=== PATIENT | male | born 1975 | race Caucasian/White ===

== ENCOUNTER → 2016-04-27 | Outpatient (CLI) | payer OTHER ==
[~2016-04-27] MED LIST: ACET-654 PO; COLA100C PO; DITR5TAB PO; HYDR-3713 PO; PERC5TAB6 PO; PERCOCET PO; TOPR25TA PO; TYLE325T5 PO
[2016-04-27 17:34] LABS: CALCIUM LEVEL 9.1 MG/DL (8.5-10.1); CREATININE FOR GFR 1.47 MG/DL (0.70-1.30); GLOMERULAR FILTRATION RATE 56.2 (>60); POTASSIUM SERUM 4.6 MEQ/L (3.5-5.1)
== END ==
LOC: M SMT 10:22
PROVIDERS: ATTEND Urology
DX: C64.9 Malignant neoplasm of unspecified kidney, except renal pelvis (principal); Z90.5 Acquired absence of kidney

== ENCOUNTER → 2016-05-17 | Outpatient (CLI) | payer OTHER ==
[~2016-05-17] MED LIST changes: +ISOVUE-370 76% 100ML VIAL (Q9967) As Ordered ONE
--- NOTE | 2016-05-17 10:42 | REP ---
Clinical: History of renal cell carcinoma with prior right nephrectomy. Technique: Axial contrast enhanced images from the lung bases to the pubic symphysis using 100 ml Isovue 370 intravenous contrast material with precontrast and delayed images of the abdomen and pelvis as well as coronal and sagittal re-formations. Comparison: 02/22/2016. Findings: Liver, spleen, pancreas, gallbladder, and bilateral adrenal glands are normal. The patient is status post right nephrectomy in the right renal fossa is unremarkable. The left kidney demonstrates stable 2.2 cm cortical cyst and few nonobstructing renal calculi up to 9 mm without perinephric stranding or hydroureteronephrosis. The enteric system is without obstruction or acute inflammatory process. Normal terminal ileum and appendix are identified in the right lower quadrant. This scattered colonic and sigmoid diverticula noted without acute diverticulitis. Pelvis demonstrates normal bladder and age appropriate prostate/seminal vesicles. No ascites. No adenopathy. No mass lesion. Vasculature normal. Musculoskeletal structures are intact. Lung bases clear. Impression: 1. Left kidney demonstrates 2.2 cm stable simple cyst and few nonobstructing calculi up to 9 mm. Status post right nephrectomy. No evidence for recurrence or metastatic disease. 2. Colonic diverticula without acute diverticulitis. Signed by Reed Edwards MD 05/17/2016 10:33 A
== END ==
LOC: M RAD 09:48
PROVIDERS: ATTEND Urology
DX: Z85.528 Personal history of other malignant neoplasm of kidney (principal); Z08 Encounter for follow-up examination after completed treatment for malignant neoplasm
CPT/HCPCS: 74178; Q9967

== ENCOUNTER → 2016-08-27 | Outpatient (CLI) | payer OTHER ==
[~2016-08-27] MED LIST changes: -ACET-654 PO; +ACET1TAB17 PO; -COLA100C PO; +COLA100C5 PO; +FLOM5CAP PO; -ISOVUE-370 76% 100ML VIAL (Q9967) As Ordered ONE; +NAPR500T PO; +PERC5TAB12 PO; -PERC5TAB6 PO; +PYRI1TAB5 PO; +TAMSULOSIN
[2016-08-27 19:02] LABS: MEAN CORPUSCULAR HEMOGLOBIN 31.5 pg (27.0-33.0); MEAN CORPUSCULAR HGB CONC 35.2 g/dl (32.0-36.5); MEAN CORPUSCULAR VOLUME 89.5 fl (80.0-96.0); RED CELL DISTRIBUTION WIDTH 13.2 % (11.5-14.5); WHITE BLOOD COUNT 6.9 K/mm3 (4.0-10.0)
[2016-08-27 20:42] LABS: CALCIUM LEVEL 10.1 MG/DL (8.5-10.1); CREATININE FOR GFR 1.5 MG/DL (0.70-1.30); GLOMERULAR FILTRATION RATE 54.6 (>60); POTASSIUM SERUM 4.6 MEQ/L (3.5-5.1)
== END ==
LOC: M LAB 17:25
PROVIDERS: ATTEND Urology
DX: Z01.818 Encounter for other preprocedural examination (principal); N20.0 Calculus of kidney

== ENCOUNTER → 2016-08-30 | Day surgery (SDC) | payer OTHER ==
[~2016-08-30] VITALS: Ht 177.8 cm; Wt 104.3 kg
[~2016-08-30] MED LIST changes: +LIDOCAINE 2% INJ 100 MG/5 ML SDV (FOR ANES.) As Ordered ONE; +LR 500 ML IV ONE; +MIDAZOLAM INJ 2 MG/2 ML VIAL (J2250) As Ordered ONE; +PROPOFOL 200 MG/20 ML VIAL As Ordered ONE; +fentaNYL 100 MCG/2 ML INJECTION (J3010) As Ordered ONE
--- NOTE | 2016-08-30 10:17 | REP ---
KUB, ONE VIEW: HISTORY: Left kidney stones. COMPARISON: 09/16/2011. Calcifications are present overlying the left kidney. The largest measures 7 mm. A small amount of air is present in small and large intestine. There are no air fluid levels or dilated loops of intestine. IMPRESSION: 1. Left nephrolithiasis. 2. Nonspecific bowel gas pattern. Signed by Juan Ramon Coffman MD 08/30/2016 10:18 A
[2016-08-30 12:15] VITALS: BP 138/88
--- NOTE | 2016-08-30 18:00 | RO ---
DATE OF PROCEDURE: 08/30/2016 PREPROCEDURE DIAGNOSIS: Left kidney stones. POSTPROCEDURE DIAGNOSIS: Left kidney stones. PROCEDURE: PROCEDURE: Left extracorporeal shockwave lithotripsy. SURGEON: Dr. Sharath Samano SUPERVISOR ROAD ADMINISTRATOR: None ANESTHESIA: Monitored anesthesia care (MAC). OPERATIVE INDICATIONS: This is a 41-year-old male with a solitary left kidney due to having a right radical nephrectomy a year or two ago for renal cell carcinoma. On surveillance CAT scan he was noted to have approximately 3-4 left sided kidney stones in the lower pole measuring up to 4-5 mm in size. It was recommended he be brought to the operating room today for the above listed procedure. DESCRIPTION OF PROCEDURE: The patient was brought to the operating room and MAC anesthesia was administered. Prophylactic antibiotics were infused. He was then placed in the supine position in preparation for left-sided extracorporeal shockwave lithotripsy. Fluoroscopy was utilized to monitor stone position and fragmentation throughout the procedure. Shockwaves were then delivered to the left-sided kidney stones ungated. There were no arrhythmias. The stones did appear to fragment well. After 2500 shocks, the procedure was concluded. The patient was then awakened from anesthesia and transported to the recovery room in stable condition. ESIMTATED BLOOD LOSS: 0 mL. COMPLICATIONS: None. SPECIMENS: None. PLAN: The patient will followup in the clinic in a few weeks with imaging prior to assess for residual stone burden. CORBY
== END | disposition home or self-care (01) ==
LOC: M SDC 09:12
PROVIDERS: ATTEND Urology
DX: N20.0 Calculus of kidney (principal); I10 Essential (primary) hypertension; C64.1 Malignant neoplasm of right kidney, except renal pelvis

== ENCOUNTER → 2016-09-26 | Outpatient (CLI) | payer OTHER ==
[~2016-09-26] MED LIST changes: -LIDOCAINE 2% INJ 100 MG/5 ML SDV (FOR ANES.) As Ordered ONE; -LR 500 ML IV ONE; -MIDAZOLAM INJ 2 MG/2 ML VIAL (J2250) As Ordered ONE; -PROPOFOL 200 MG/20 ML VIAL As Ordered ONE; -fentaNYL 100 MCG/2 ML INJECTION (J3010) As Ordered ONE
--- NOTE | 2016-09-27 01:31 | REP ---
Clinical: Nephrolithiasis. Technique: Two supine views of the abdomen and pelvis. Comparison: 08/30/2016. Findings: Evaluation is limited by overlying bowel gas pattern. However, multiple left intrarenal calculi are again suggested and essentially unchanged. No evidence for bowel obstruction. Skeletal structures are intact. No organomegaly. Impression: Left intrarenal calculi essentially unchanged compared to prior examination. Signed by Reed Edwards MD 09/27/2016 01:22 A
== END ==
LOC: M SMT 11:23
PROVIDERS: ATTEND Urology
DX: N20.0 Calculus of kidney (principal)

== ENCOUNTER → 2016-12-05 | Outpatient (CLI) | payer OTHER ==
--- NOTE | 2016-12-06 15:20 | REP ---
Clinical: Nephrolithiasis. Technique: Single supine view of the abdomen and pelvis. Comparison: 09/26/2016. Findings: Small bilateral intrarenal calculi are identified along with 10 mm nonobstructing left renal calculus. Nonspecific bowel gas pattern. No organomegaly. No abnormal calcifications. Skeletal structures intact. Impression: Bilateral nephrolithiasis (left greater than right). Signed by Reed Edwards MD 12/06/2016 03:11 P
== END ==
LOC: M SMT 11:52
PROVIDERS: ATTEND Urology
DX: N20.0 Calculus of kidney (principal)

== ENCOUNTER 2016-12-10 18:19 | Emergency (ER) | payer OTHER ==
[~2016-12-10] VITALS: Ht 177.8 cm; Wt 108.1 kg
[~2016-12-10 18:19] MED LIST changes: -FLOM5CAP PO; -NAPR500T PO; -PYRI1TAB5 PO; -TAMSULOSIN
[2016-12-10] MEDS ORDERED: TAMSULOSIN (18:55)
[2016-12-10] MEDS ORDERED: NS 1,000 ML IV SCH (19:21)
[2016-12-10] MEDS ORDERED: KETOROLAC 30 MG/ML VIAL (J1885) IV ONE (19:30)
[2016-12-10] MEDS ORDERED: MORPHINE 2 MG/ML 1ML SYRINGE IV PRN (19:30)
[2016-12-10] MEDS ORDERED: ONDANSETRON 4MG/2ML VIAL (J2405) IV ONE (19:30)
--- NOTE | 2016-12-10 20:00 | REPUSA ---
CT of the abdomen and pelvis without contrast Clinical statement: Pain. Technique: Multiple axial CT images were obtained from the base of the lungs to the floor of the pelv is utilizing 5 mm axial slices without administration of contrast. Coronal and sagittal reconstructio ns were also obtained. Comparison: 02/22/2016. Findings: Chest: The visualized lung bases are clear. Abdomen: The right kidney is absent. The left kidney is unremarkable. There is no evidence of hydrone phrosis. Multiple stones are seen in the left kidney. The largest of these is in the left renal pelvi s measuring 9 mm. There is a simple left lateral renal cyst measuring 1.6 x 2.6 cm. The liver, spleen , pancreas, gallbladder and adrenal glands are unremarkable. The aorta demonstrates normal caliber an d contour. There is no abdominal lymphadenopathy or ascites. Pelvis: The bowel is unremarkable, with no obstructive or inflammatory changes. The appendix is paris l. The urinary bladder is within normal limits. There is no pelvic lymphadenopathy or ascites. The ot her pelvic structures appear unremarkable. Bones: There are no suspicious osseous abnormalities seen. Impression: 1. Multiple nonobstructing stones in the left renal collecting system. The largest of these is a 9 mm stone located in the left renal pelvis. There is no evidence of hydronephrosis. Simple left renal cy st is noted. 2. No obstructive or inflammatory bowel changes. 3. Grossly stable examination.
[2016-12-10 20:03] LABS: BASO # 0.1 10^3/uL (0.0-0.2); BASO % 0.5 % (0.0-1.0); EOS # 0.4 10^3/uL (0.0-0.50); EOS % 3.8 % (0.0-3.0); IMMATURE GRANULOCYTE % 0.3 % (0-0); LYMPH # 2.6 10^3/uL (1.5-4.5); LYMPH % 25.7 % (24.0-44.0); MEAN CORPUSCULAR HGB CONC 34.2 g/dl (32.0-36.5); MEAN CORPUSCULAR VOLUME 90.6 fl (80.0-96.0); MONO # 0.9 10^3/uL (0.0-0.8); MONO % 8.8 % (0.0-5.0); NEUTROPHILS # 6.2 10^3/uL (1.8-7.7); NEUTROPHILS % 60.9 % (36.0-66.0); PLATELET COUNT, AUTOMATED 238 10^3/uL (150-450); RED CELL DISTRIBUTION WIDTH 12.8 % (11.5-14.5); WHITE BLOOD COUNT 10.1 10^3/uL (4.0-10.0)
[2016-12-10 20:23] LABS: ALBUMIN/GLOBULIN RATIO 1.08 (1.00-1.93); BILIRUBIN,DIRECT 0.1 MG/DL (0.0-0.2); BILIRUBIN,TOTAL 0.4 MG/DL (0.2-1.0); CALCIUM LEVEL 9.6 MG/DL (8.5-10.1); CREATININE FOR GFR 1.56 MG/DL (0.70-1.30); GLOMERULAR FILTRATION RATE 52.2 (>60); POTASSIUM SERUM 4.1 MEQ/L (3.5-5.1); TOTAL PROTEIN 7.7 GM/DL (6.4-8.2)
[2016-12-10] MEDS ORDERED: PYRI1TAB5 PO (22:20)
[2016-12-10] MEDS ORDERED: NAPR500T PO (22:20)
[2016-12-10 22:28] VITALS: BP 146/84
[2016-12-10] MEDS ORDERED: PHENAZOPYRIDINE 100 MG TAB PO ONE (22:30)
[2016-12-14] MEDS ORDERED: PERC5TAB12 PO (13:13)
[2016-12-14] MEDS ORDERED: FLOM5CAP PO (13:13)
== END 2016-12-10 22:30 | disposition home or self-care (01) ==
LOC: M ED 18:19
DX: R10.9 Unspecified abdominal pain (principal); Z87.891 Personal history of nicotine dependence
CPT/HCPCS: 74176; 80048; 80076; 81001; 83690; 85025; 87086; 96374; 96375; 99283; J1885; J2405

== ENCOUNTER → 2016-12-19 | Outpatient (CLI) | payer OTHER ==
[~2016-12-19] MED LIST changes: +FLOM5CAP PO; +NAPR500T PO; +PYRI1TAB5 PO; +TAMSULOSIN
[2016-12-19 18:43] LABS: MEAN CORPUSCULAR HEMOGLOBIN 30.2 pg (27.0-33.0); MEAN CORPUSCULAR HGB CONC 32.3 g/dl (32.0-36.5); MEAN CORPUSCULAR VOLUME 93.5 fl (80.0-96.0); PLATELET COUNT, AUTOMATED 253 10^3/uL (150-450); RED CELL DISTRIBUTION WIDTH 12.7 % (11.5-14.5); WHITE BLOOD COUNT 6.6 10^3/uL (4.0-10.0)
[2016-12-19 19:06] LABS: CALCIUM LEVEL 9.1 MG/DL (8.5-10.1); CREATININE FOR GFR 1.58 MG/DL (0.70-1.30); GLOMERULAR FILTRATION RATE 51.5 (>60); POTASSIUM SERUM 4.1 MEQ/L (3.5-5.1)
== END ==
LOC: M SMT 12:16
PROVIDERS: ATTEND Urology
DX: Z01.818 Encounter for other preprocedural examination (principal); N20.0 Calculus of kidney

== ENCOUNTER 2016-12-20 08:37 | Day surgery (SDC) | payer OTHER ==
[~2016-12-20] VITALS: Ht 177.8 cm; Wt 104.8 kg
[~2016-12-20 08:37] MED LIST changes: +PROPOFOL 200 MG/20 ML VIAL As Ordered ONE
[2016-12-20] MEDS ORDERED: fentaNYL 100 MCG/2 ML INJECTION (J3010) As Ordered ONE (08:45)
[2016-12-20] MEDS ORDERED: MIDAZOLAM INJ 2 MG/2 ML VIAL (J2250) As Ordered ONE (08:46)
[2016-12-20] MEDS ORDERED: LR 1,000 ML IV ONE (09:00)
[2016-12-20] MEDS ORDERED: LIDOCAINE 1% MDV 20ML VIAL SC PRN (09:00)
--- NOTE | 2016-12-20 09:31 | REP ---
KUB ABDOMEN AND PELVIS: KUB film of abdomen and pelvis is performed and compared to prior a prior study of 12/05/2016. There is a nonobstructive bowel gas pattern. Once again overlying the mid left kidney is a rounded calcification approximately 1 cm in diameter unchanged since prior study. A couple of subcentimeter calcifications overlie the upper pole and a couple again overlie the lower pole of the left kidney. Evaluation for right renal calculi is limited by bowel gas and fecal material superimposed on the right kidney. Signed by Mak Colbert MD 12/20/2016 02:34 P
[2016-12-20] MEDS ORDERED: PERCOCET 5MG/325MG TAB As Ordered ONE (11:37)
[2016-12-20 12:00] VITALS: BP 116/69
[2016-12-20] MEDS ORDERED: PERCOCET 5MG/325MG TAB PO PRN ×2 (12:00)
--- NOTE | 2016-12-21 14:40 | RO ---
DATE OF PROCEDURE: 12/20/2016 PREPROCEDURE DIAGNOSIS: Left kidney stone. POSTPROCEDURE DIAGNOSIS: Left kidney stone. PROCEDURE: Left extracorporeal shock wave lithotripsy (ESWL). SURGEON: Sharath Samano MD SCHEDULING AGENT: None ANESTHESIA: Monitored anesthesia care (MAC). OPERATIVE INDICATIONS: This is a 41-year-old male with a solitary left kidney, who had a recurrent left sided kidney stone. He had left extracorporeal shock wave lithotripsy recently and on recent imaging, he has another 9 mm nonobstructing left kidney stone. Options for treatment included ureteroscopy with laser lithotripsy and extracorporeal shock wave lithotripsy. He preferred to undergo another extracorporeal shock wave lithotripsy. DESCRIPTION OF PROCEDURE: The patient was brought to the operating room where MAC anesthesia was administered. Prophylactic antibiotics were infused. He was then placed in the supine position in preparation for left-sided extracorporeal shock wave lithotripsy. Fluoroscopy was utilized to monitor stone position and fragmentation throughout the procedure. Shock waves were then delivered to the left-sided kidney stone, ungated. There were no arrhythmias. The stones did appear to fragment well. After 2500 shocks, the procedure was concluded. The patient was then awakened from anesthesia and transported to the recovery room in stable condition. ESTIMATED BLOOD LOSS: 0 mL. INTRAOPERATIVE COMPLICATIONS: None. SPECIMENS: None. PLAN: The patient will followup in the clinic in a few weeks with imaging prior to assess for residual stone burden. Of note, if he does not adequately pass the stone from this procedure, I will recommend a uteroscopy with laser lithotripsy. [facility] OGDEN MEDICAL CENTERFelicia
== END 2016-12-20 12:20 | disposition home or self-care (01) ==
LOC: M SDC 08:37
PROVIDERS: ATTEND Urology
DX: N20.0 Calculus of kidney (principal); N39.0 Urinary tract infection, site not specified; I10 Essential (primary) hypertension; C64.1 Malignant neoplasm of right kidney, except renal pelvis; Z72.0 Tobacco use

== ENCOUNTER 2019-09-27 16:45 | Inpatient (IN) | payer BC, SELFPAY ==
[~2019-09-27 16:45] MED LIST changes: -ACET1TAB17 PO; +ACET1TAB55 PO; +FLOM0.4C39 PO; -FLOM5CAP PO; +KETOROLAC 30 MG/ML 1ML VIAL As Ordered ONE; +NAPR-837 PO; -NAPR500T PO; +ONDANSETRON 4MG/2ML VIAL As Ordered ONE; -PROPOFOL 200 MG/20 ML VIAL As Ordered ONE
[2019-09-27] MEDS ORDERED: cefTRIAXone SOD 1GM VIAL (J0696 PER 250MG) As Ordered ONE (17:31)
[2019-09-27] MEDS ORDERED: CONRAY-60 60% 50ML VIAL (Q9961) As Ordered ONE (18:16)
[2019-09-27] MEDS ORDERED: fentaNYL 100 MCG/2 ML INJECTION (J3010) ONE (18:39)
[2019-09-27] MEDS ORDERED: propofoL 200 MG/20 ML VIAL ONE ×2 (18:39→18:45)
[2019-09-27] MEDS ORDERED: MIDAZOLAM INJ 2MG/2ML VIAL (J2250 PER 1MG) ONE (18:39)
[2019-09-27] MEDS ORDERED: LIDOCAINE 2% 5ML JELLY UROJET As Ordered ONE ×2 (18:40→18:43)
[2019-09-27] MEDS ORDERED: ALBUTEROL SULFATE 2.5 MG/0.5 ML INH NEB SOLN As Ordered ONE (19:31)
[2019-09-27] MEDS ORDERED: oxyBUTYnin 5 MG TAB As Ordered ONE (19:31)
[2019-09-27] MEDS ORDERED: oxyCODONE 5MG TAB As Ordered ONE (20:29)
[2019-09-27] MEDS ORDERED: ACETAMINOPHEN TAB 650MG DOSE (2X325MG) As Ordered ONE (23:20)
[2019-09-27] MEDS ORDERED: MORPHINE 2 MG/ML 1ML VIAL (J2270) As Ordered ONE (23:29)
[2019-09-28] MEDS ORDERED: MORPHINE 2 MG/ML 1ML VIAL (J2270) As Ordered ONE ×3 (02:06→08:17)
[2019-09-28] MEDS ORDERED: ACETAMINOPHEN TAB 650MG DOSE (2X325MG) As Ordered ONE (05:55)
[2019-09-28] MEDS ORDERED: ENOXAPARIN 40MG/0.4ML SYRINGE (J1650 PER 10MG) As Ordered ONE (08:17)
[2019-09-28] MEDS ORDERED: ONDANSETRON 4 MG TAB As Ordered ONE (08:17)
[2019-09-28] MEDS ORDERED: amLODIPine 5 MG TAB As Ordered ONE (13:22)
[2019-09-28] MEDS ORDERED: PERCOCET 5MG/325MG TAB As Ordered ONE (13:26)
[2019-11-12 13:36] LABS: INR 1.06; PROTHROMBIN TIME 14.1 SECONDS (11.8-14.0)
[2019-11-12 16:43] LABS: BASO % 0.2 % (0.0-1.0); EOS % 0.1 % (0.0-3.0); HEMATOCRIT 44.3 % (42.0-52.0); HEMOGLOBIN 14.6 g/dl (13.5-17.5); LYMPH # 1.4 10^3/uL (1.5-5.0); LYMPH % 8.1 % (24.0-44.0); MEAN CORPUSCULAR HEMOGLOBIN 28.6 pg (27.0-33.0); MEAN CORPUSCULAR VOLUME 86.9 fl (80.0-96.0); MONO # 1.2 10^3/uL (0.0-0.8); MONO % 7.1 % (0.0-5.0); NEUTROPHILS # 14.2 10^3/uL (1.5-8.5); NEUTROPHILS % 84.1 % (36.0-66.0); PLATELET COUNT, AUTOMATED 295 10^3/uL (150-450); WHITE BLOOD COUNT 16.8 10^3/uL (4.0-10.0)
[2019-11-17 06:56] LABS: APPEARANCE, URINE HAZY (CLEAR); BACTERIA, URINE AUTO 1+ (NEGATIVE); BILIRUBIN, URINE AUTO NEGATIVE (NEGATIVE); BLOOD, URINE BLOOD 3+ (NEGATIVE); CALCIUM OXALATE CRYSTALS SMALL; COLOR, URINE YELLOW (YELLOW); GLUCOSE, URINE (UA) AUTO NEGATIVE (NEGATIVE); KETONE, URINE AUTO NEGATIVE (NEGATIVE); LEUKOCYTE ESTERASE, URINE AUTO 2+ (NEGATIVE); MUCUS, URINE SMALL (NEGATIVE); NITRITE, URINE AUTO NEGATIVE (NEGATIVE); PROTEIN, URINE AUTO 2+ mg/dL (NEGATIVE); RBC, URINE AUTO TNTC /HPF (0-3); SPECIFIC GRAVITY URINE AUTO 1.005 (1.002-1.035); SQUAMOUS EPITHELIAL CELL UR AU 0 /HPF (0-6); UROBILINOGEN, URINE AUTO 0.2 mg/dL (0.0-2.0); WBC, URINE AUTO 28 /HPF (0-3)
[2019-11-17 14:14] LABS: CALCIUM LEVEL 8.6 MG/DL (8.5-10.1); CREATININE FOR GFR 3.38 MG/DL (0.70-1.30); GLOMERULAR FILTRATION RATE 21.1 (>60); POTASSIUM SERUM 4.1 MEQ/L (3.5-5.1)
[2019-11-17 16:49] LABS: BASO % 0.1 % (0.0-1.0); EOS % 0.2 % (0.0-3.0); HEMOGLOBIN 13.8 g/dl (13.5-17.5); LYMPH # 0.9 10^3/uL (1.5-5.0); LYMPH % 8.6 % (24.0-44.0); MEAN CORPUSCULAR HEMOGLOBIN 28.3 pg (27.0-33.0); MEAN CORPUSCULAR HGB CONC 32.9 g/dl (32.0-36.5); MEAN CORPUSCULAR VOLUME 86.1 fl (80.0-96.0); MONO # 0.6 10^3/uL (0.0-0.8); MONO % 5.4 % (0.0-5.0); NEUTROPHILS # 9.3 10^3/uL (1.5-8.5); NEUTROPHILS % 85.2 % (36.0-66.0); PLATELET COUNT, AUTOMATED 278 10^3/uL (150-450); RED BLOOD COUNT 4.88 10^6/uL (4.30-6.10); WHITE BLOOD COUNT 10.9 10^3/uL (4.0-10.0)
--- NOTE | 2019-11-26 08:50 | RO ---
DATE OF OPERATION: 09/27/2019 PREOPERATIVE DIAGNOSIS: Obstructing left kidney stone. POSTOPERATIVE DIAGNOSIS: Obstructing left kidney stone. PROCEDURE: Cystoscopy. Left ureteral stent placement. Left retrograde pyelogram with intraoperative interpretation of images. SURGEON: Sharath Samano MD. HUMAN RESOURCES PROFESSIONAL: None. ANESTHESIA: MAC. OPERATIVE INDICATIONS: This is a 44-year-old male with the history of a solitary left kidney. This is due to him having a right radical nephrectomy a few years ago. He presented to the emergency room with anuria x1 day and severe left flank pain. A CAT scan was obtained and it was notable for an obstructing 2-cm left ureteropelvic junction stone. He was brought to the operating room today for the above listed procedure. DESCRIPTION OF PROCEDURE: The patient was brought to the operating room and MAC anesthesia was administered. Prophylactic antibiotics were infused. He was placed in the dorsal lithotomy position and prepped, and draped in the usual sterile fashion. A rigid cystoscope was inserted into the urethral meatus and advanced to the bladder. A guidewire was advanced up the left collecting system. A 5-Martiniquais open-ended ureteral catheter was advanced over the wire into the left collecting system. The wire was removed and some urine was aspirated from the left kidney which was sent for culture. A retrograde pyelogram was performed notable for [id number] left hydronephrosis with no extravasation. The guidewire was advanced back up the left collecting system. The ureteral catheter was then removed and then the wire was utilized to advance a 7-Martiniquais x 22-32 cm JJ ureteral stent into the left collecting system. The wire was removed. There were adequate curls of the stent in the left renal pelvis and in the bladder. The cystoscope was then removed. Then, a 16-Martiniquais Crowell catheter was inserted into the bladder. The balloon was filled with 10 mL of sterile water and the catheter was connected to gravity drainage. This marked the conclusion of the procedure. The patient was taken out of the dorsal lithotomy position, awakened from anesthesia, and transported to the recovery room in stable condition. ESTIMATED BLOOD LOSS: 5 mL. COMPLICATIONS: None. SPECIMEN: Urine from the left kidney for culture. PLAN: The patient will be monitored in the hospital for the next few days for acute kidney injury. His catheter can likely be removed tomorrow. Once his kidney function improves, he will be discharged to home and will have to follow up for a cystoscopy, left ureteroscopy, and laser lithotripsy in the near future. CORBY
[2019-12-06 14:43] LABS: BASO % 0.2 % (0.0-1.0); EOS % 0.1 % (0.0-3.0); HEMATOCRIT 42.5 % (42.0-52.0); HEMOGLOBIN 14.1 g/dl (13.5-17.5); LYMPH # 1.4 10^3/uL (1.5-5.0); LYMPH % 11.6 % (24.0-44.0); MEAN CORPUSCULAR HEMOGLOBIN 29.1 pg (27.0-33.0); MEAN CORPUSCULAR HGB CONC 33.2 g/dl (32.0-36.5); MEAN CORPUSCULAR VOLUME 87.8 fl (80.0-96.0); MONO # 0.9 10^3/uL (0.0-0.8); MONO % 7.6 % (0.0-5.0); NEUTROPHILS # 9.8 10^3/uL (1.5-8.5); NEUTROPHILS % 80.1 % (36.0-66.0); PLATELET COUNT, AUTOMATED 297 10^3/uL (150-450); RED BLOOD COUNT 4.84 10^6/uL (4.30-6.10); WHITE BLOOD COUNT 12.2 10^3/uL (4.0-10.0)
[2019-12-09 15:26] LABS: ALBUMIN 3.7 GM/DL (3.2-5.2); BILIRUBIN,TOTAL 0.5 MG/DL (0.2-1.0); CREATININE FOR GFR 4.96 MG/DL (0.70-1.30); GLOMERULAR FILTRATION RATE 13.6 (>60); POTASSIUM SERUM 4.4 MEQ/L (3.5-5.1); TOTAL PROTEIN 7.4 GM/DL (6.4-8.2)
[2019-12-13 20:07] LABS: CALCIUM LEVEL 8.5 MG/DL (8.5-10.1); CREATININE FOR GFR 1.62 MG/DL (0.70-1.30); GLOMERULAR FILTRATION RATE 49.3 (>60)
[2019-12-22 09:32] LABS: CALCIUM LEVEL 8.6 MG/DL (8.5-10.1); CREATININE FOR GFR 3.38 MG/DL (0.70-1.30); GLOMERULAR FILTRATION RATE 21.1 (>60); POTASSIUM SERUM 4.1 MEQ/L (3.5-5.1)
[2019-12-22 09:32] LABS: CALCIUM LEVEL 8.7 MG/DL (8.5-10.1); CREATININE FOR GFR 2.63 MG/DL (0.70-1.30); GLOMERULAR FILTRATION RATE 28.2 (>60); POTASSIUM SERUM 4.1 MEQ/L (3.5-5.1)
== END 2019-09-29 16:00 | disposition home or self-care (01) | DRG 465 ==
LOC: M ED 16:45 → M MS5PR 20:58
PROVIDERS: ADMIT Internal Medicine; ATTEND Internal Medicine
PROC: 0T778DZ Dilation of Left Ureter with Intraluminal Device, Via Natural or Artificial Opening Endoscopic (ICD-10-PCS; principal; 2019-09-27)
DX: N13.2 Hydronephrosis with renal and ureteral calculous obstruction (principal); N17.9 Acute kidney failure, unspecified; J45.909 Unspecified asthma, uncomplicated; I12.9 Hypertensive chronic kidney disease with stage 1 through stage 4 chronic kidney disease, or unspecified chronic kidney disease; Z91.013 Allergy to seafood; N18.9 Chronic kidney disease, unspecified

== ENCOUNTER → 2019-10-21 | Outpatient (REF) | payer BC, OTHER, SELFPAY ==
[~2019-10-21] MED LIST changes: -KETOROLAC 30 MG/ML 1ML VIAL As Ordered ONE; -ONDANSETRON 4MG/2ML VIAL As Ordered ONE; +OXYB5TAB10 PO
[2019-10-21 18:57] LABS: APPEARANCE, URINE CLOUDY (CLEAR); BACTERIA, URINE AUTO NEGATIVE (NEGATIVE); BILIRUBIN, URINE AUTO NEGATIVE (NEGATIVE); BLOOD, URINE BLOOD 3+ (NEGATIVE); COLOR, URINE YELLOW (YELLOW); GLUCOSE, URINE (UA) AUTO NEGATIVE (NEGATIVE); KETONE, URINE AUTO NEGATIVE (NEGATIVE); LEUKOCYTE ESTERASE, URINE AUTO 2+ (NEGATIVE); NITRITE, URINE AUTO NEGATIVE (NEGATIVE); PROTEIN, URINE AUTO 2+ mg/dL (NEGATIVE); RBC, URINE AUTO TNTC /HPF (0-3); SPECIFIC GRAVITY URINE AUTO 1.018 (1.002-1.035); SQUAMOUS EPITHELIAL CELL UR AU 1 /HPF (0-6); UROBILINOGEN, URINE AUTO 0.2 mg/dL (0.0-2.0); WBC, URINE AUTO 77 /HPF (0-3)
== END ==
LOC: M LAB REF 17:27
PROVIDERS: ATTEND Nurse Practitioner Family
DX: N39.0 Urinary tract infection, site not specified (principal)

== ENCOUNTER → 2019-11-13 | Outpatient (CLI) | payer BC, OTHER | LOC: M LABSMTC 10:52 | PROVIDERS: ATTEND Anesthesiology | DX: Z01.812 Encounter for preprocedural laboratory examination (principal); Z20.828 Contact with and (suspected) exposure to other viral communicable diseases | CPT/HCPCS: C9803; U0003 ==

== ENCOUNTER → 2019-11-13 | Outpatient (CLI) | payer BC, OTHER, SELFPAY ==
[2019-11-13 13:14] LABS: HEMOGLOBIN 12.7 g/dl (13.5-17.5); MEAN CORPUSCULAR HEMOGLOBIN 28.5 pg (27.0-33.0); MEAN CORPUSCULAR HGB CONC 31.8 g/dl (32.0-36.5); MEAN CORPUSCULAR VOLUME 89.9 fl (80.0-96.0); PLATELET COUNT, AUTOMATED 356 10^3/uL (150-450); RED BLOOD COUNT 4.45 10^6/uL (4.30-6.10); WHITE BLOOD COUNT 5.5 10^3/uL (4.0-10.0)
[2019-11-13 14:02] LABS: APPEARANCE, URINE HAZY (CLEAR); BACTERIA, URINE AUTO NEGATIVE (NEGATIVE); BILIRUBIN, URINE AUTO NEGATIVE (NEGATIVE); BLOOD, URINE BLOOD 3+ (NEGATIVE); COLOR, URINE YELLOW (YELLOW); GLUCOSE, URINE (UA) AUTO NEGATIVE (NEGATIVE); KETONE, URINE AUTO NEGATIVE (NEGATIVE); LEUKOCYTE ESTERASE, URINE AUTO 3+ (NEGATIVE); NITRITE, URINE AUTO NEGATIVE (NEGATIVE); PROTEIN, URINE AUTO 1+ mg/dL (NEGATIVE); RBC, URINE AUTO TNTC /HPF (0-3); SPECIFIC GRAVITY URINE AUTO 1.011 (1.002-1.035); SQUAMOUS EPITHELIAL CELL UR AU 0 /HPF (0-6); UROBILINOGEN, URINE AUTO 0.2 mg/dL (0.0-2.0); WBC, URINE AUTO 16 /HPF (0-3)
[2019-11-13 14:02] LABS: BLOOD UREA NITROGEN 13 MG/DL (7-18); CALCIUM LEVEL 9.1 MG/DL (8.5-10.1); CARBON DIOXIDE LEVEL 29 MEQ/L (21-32); CHLORIDE LEVEL 105 MEQ/L (98-107); CREATININE FOR GFR 1.12 MG/DL (0.70-1.30); GLOMERULAR FILTRATION RATE > 60.0 (>60); GLUCOSE, FASTING 110 MG/DL (70-100); POTASSIUM SERUM 4.1 MEQ/L (3.5-5.1); SODIUM LEVEL 139 MEQ/L (136-145)
== END ==
LOC: M PLALAB 11:27
PROVIDERS: ATTEND Nurse Practitioner Family
DX: N20.0 Calculus of kidney (principal); Z01.818 Encounter for other preprocedural examination

== ENCOUNTER 2019-11-18 09:20 | Day surgery (SDC) | payer SELFPAY ==
[~2019-11-18] VITALS: Ht 177.8 cm; Wt 103.9 kg
[~2019-11-18 09:20] MED LIST changes: +LIDOCAINE 2% 100MG/5ML SDV (FOR ANES.) As Ordered ONE; +LR 1,000 ML IV ONE; +MIDAZOLAM INJ 2MG/2ML VIAL (J2250 PER 1MG) As Ordered ONE; +ONDANSETRON 4MG/2ML VIAL As Ordered ONE; -OXYB5TAB10 PO; +ceFAZolin SOD 2 GM in IV 1 EA IV ONE; +dexameTHASONE 4 MG/ML 1ML VIAL (J1100 PER 1MG) As Ordered ONE; +fentaNYL 100 MCG/2 ML INJECTION (J3010) As Ordered ONE; +propofoL 200 MG/20 ML VIAL As Ordered ONE
[2019-11-18] MEDS ORDERED: ceFAZolin 2 GM/D5W 50 ML IV BAG (J0690 PER 500MG) As Ordered ONE (09:36)
[2019-11-18] MEDS ORDERED: CONRAY-60 60% 50ML VIAL (Q9961) As Ordered ONE (09:40)
[2019-11-18 10:18] LABS: INR 0.99; PROTHROMBIN TIME 13.3 SECONDS (12.5-14.3)
[2019-11-18] MEDS ORDERED: ACETAMINOPHEN 1000MG 100ML IV BTL (OFIRMEV) (J0131 PER 10MG) As Ordered ONE (10:27)
[2019-11-18] MEDS ORDERED: fentaNYL 100 MCG/2 ML INJECTION (J3010) IV PRN (12:15)
[2019-11-18] MEDS ORDERED: ONDANSETRON 4MG/2ML VIAL IV PRN (12:15)
[2019-11-18] MEDS ORDERED: LR 1,000 ML IV SCH (12:15)
[2019-11-18] MEDS ORDERED: oxyCODONE 5MG TAB PO PRN (12:15)
[2019-11-18] MEDS ORDERED: OXYB5TAB10 PO (12:19)
[2019-11-18] MEDS ORDERED: PERCOCET PO (12:19)
[2019-11-18] MEDS ORDERED: FLOM0.4C39 PO (12:19)
[2019-11-18 12:49] VITALS: BP 135/78
[2019-11-18] MEDS ORDERED: PERCOCET 5MG/325MG TAB PO PRN (13:15)
--- NOTE | 2019-11-26 16:08 | REP ---
C-ARM VIEWS ABDOMEN AND PELVIS HISTORY: Left ureteral stent placement. TECHNIQUE: Five C-arm views of the abdomen and pelvic are performed during placement of a left ureteral stent. FINDINGS: Contrast partially opacifies the dilated left pelvicalyceal system. A left ureteral stent is placed. The proximal end is coiled in the left renal pelvis. The distal end is coiled in the urinary bladder. One minute and one second of fluoroscopy time is utilized. MTDD
--- NOTE | 2019-11-27 13:17 | RO ---
DATE OF OPERATION: 11/18/2019. PREOPERATIVE DIAGNOSIS: Left kidney stones. POSTOPERATIVE DIAGNOSIS: Left kidney stones. PROCEDURES: * Cystoscopy. * Left ureteroscopy with laser lithotripsy and basket extraction of stones. * Left retrograde pyelogram with intraoperative interpretative images. * Left ureteral stent exchange. SURGEON: Sharath Samano MD. SEGMENTAL WALL INSTALLER: None. ANESTHESIA: General. OPERATIVE INDICATIONS: This is a 44-year-old male with a solitary left kidney, who was brought to the Operating Room a few weeks ago for a cystoscopy and left ureteral stent placement for an obstructing left ureteropelvic junction stone. He was brought to the operating room today to treat the stone. DESCRIPTION OF PROCEDURE: Patient was brought to the operating room and general anesthesia was induced. Prophylactic antibiotics were infused. He was placed in the dorsal lithotomy position, prepped and draped in the usual sterile fashion. A rigid cystoscope was inserted into the urethral meatus and advanced into the bladder. A guidewire was advanced along side the left ureteral stent into the collecting system. The ureteral stent was then removed. Of note; the stent was very calcified. A ureteral access sheath was then advanced up the left collecting system. I went up the ureteral access sheath with the flexible ureteroscope. Inside the left kidney, an approximately 1-1/2 cm stone was seen as well as a few other stones inside the kidney. All these stones were fragmented into smaller pieces using an Excalibur laser fiber. All the larger stone fragments were removed using a basket. The remaining stone fragments were broken down into small enough pieces that should be able to pass. Once that was done, a retrograde pyelogram was performed and it was notable for mild left hydronephrosis with no extravasation. I then removed the ureteral access sheath along with the flexible ureteroscope and no additional stones were seen inside the ureter. I then utilized preplaced wire to advance a 7-Welsh x 22-32 cm JJ ureteral stent into the left collecting system. The wire was removed and there were adequate curls of the stent in the left renal pelvis and in the bladder. The bladder was emptied of all fluid. This marked conclusion of the procedure. The patient was then taken out of the dorsal lithotomy position, awakened from anesthesia, and transferred to the recovery room in stable condition. ESTIMATED BLOOD LOSS: 15 mL. COMPLICATIONS: None. SPECIMEN: Kidney stone fragments. PLAN: The patient will have his stent removed in the OR in 2-3 weeks. He will need a KUB prior. MTDD
[2019-11-30 14:07] LABS: CA Hydro Phos 10 % (.); CA Oxalate Dihy 90 % (.); Size 3x3 mm (.)
== END 2019-11-18 13:20 | disposition home or self-care (01) ==
LOC: M SDC 09:20
PROVIDERS: ATTEND Urology
DX: N20.1 Calculus of ureter (principal); Z85.828 Personal history of other malignant neoplasm of skin; Z90.5 Acquired absence of kidney; Z91.013 Allergy to seafood
CPT/HCPCS: 36415; 52356; 74420; 82365; 85610; 88300; C1769; C1894; C2617; J0131; J1100; J2250; J2405; J3010; Q9961

== ENCOUNTER → 2019-12-04 | Outpatient (CLI) | payer SELFPAY ==
[~2019-12-04] MED LIST changes: -LIDOCAINE 2% 100MG/5ML SDV (FOR ANES.) As Ordered ONE; -LR 1,000 ML IV ONE; -MIDAZOLAM INJ 2MG/2ML VIAL (J2250 PER 1MG) As Ordered ONE; -ONDANSETRON 4MG/2ML VIAL As Ordered ONE; +OXYB5TAB10 PO; -ceFAZolin SOD 2 GM in IV 1 EA IV ONE; -dexameTHASONE 4 MG/ML 1ML VIAL (J1100 PER 1MG) As Ordered ONE; -fentaNYL 100 MCG/2 ML INJECTION (J3010) As Ordered ONE; -propofoL 200 MG/20 ML VIAL As Ordered ONE
--- NOTE | 2019-12-09 14:42 | REP ---
KUB: SINGLE VIEW HISTORY: Kidney stones. COMPARISON STUDY: 12/20/2016. FINDINGS: There are calcific densities projecting into the lower pole and mid pole position of the left kidney in this patient who has a double pigtail left ureteral stent in place. Amorphous calcific material is seen in the lower pole calyx distribution. There is a rounded calcification at mid pole level measuring approximately 6 mm in diameter. No ureteral stone is seen. IMPRESSION: Calcific material persists in the intrarenal collecting system left kidney. MTDD
== END ==
LOC: M RAD 14:16
PROVIDERS: ATTEND Urology
DX: N20.0 Calculus of kidney (principal)

== ENCOUNTER → 2019-12-04 | Outpatient (CLI) | payer SELFPAY | LOC: M LABSMTC 13:40 | PROVIDERS: ATTEND Anesthesiology | DX: Z01.812 Encounter for preprocedural laboratory examination (principal); Z20.828 Contact with and (suspected) exposure to other viral communicable diseases ==

== ENCOUNTER 2019-12-09 07:55 | Day surgery (SDC) | payer SELFPAY ==
[~2019-12-09] VITALS: Ht 177.8 cm; Wt 106.6 kg
[~2019-12-09 07:55] MED LIST changes: +CIPROFLOXACIN 500MG TABLET PO ONE; +LR 1,000 ML IV ONE
[2019-12-09] MEDS ORDERED: propofoL 200 MG/20 ML VIAL As Ordered ONE (07:59)
[2019-12-09] MEDS ORDERED: LIDOCAINE 2% 100MG/5ML SDV (FOR ANES.) As Ordered ONE (07:59)
[2019-12-09] MEDS ORDERED: dexameTHASONE 4 MG/ML 1ML VIAL (J1100 PER 1MG) As Ordered ONE (08:00)
[2019-12-09] MEDS ORDERED: MIDAZOLAM INJ 2MG/2ML VIAL (J2250 PER 1MG) As Ordered ONE (08:00)
[2019-12-09] MEDS ORDERED: fentaNYL 100 MCG/2 ML INJECTION (J3010) As Ordered ONE (08:00)
[2019-12-09] MEDS ORDERED: ONDANSETRON 4MG/2ML VIAL As Ordered ONE (08:01)
[2019-12-09] MEDS ORDERED: ACETAMINOPHEN 1000MG 100ML IV BTL (OFIRMEV) (J0131 PER 10MG) As Ordered ONE ×2 (09:02→14:18)
[2019-12-09] MEDS ORDERED: LR 1,000 ML IV SCH (09:45)
[2019-12-09] MEDS ORDERED: fentaNYL 100 MCG/2 ML INJECTION (J3010) IV PRN (09:45)
[2019-12-09] MEDS ORDERED: ONDANSETRON 4MG/2ML VIAL IV PRN (09:45)
[2019-12-09] MEDS ORDERED: METOCLOPRAMIDE INJ 10MG/2ML VIAL (J2765 PER 1) IV PRN (09:45)
[2019-12-09] MEDS ORDERED: oxyCODONE 5MG TAB PO PRN (09:45)
[2019-12-09] MEDS ORDERED: MEPERIDINE INJ 25 MG/ML VIAL (J2175) IV PRN (09:45)
[2019-12-09] MEDS ORDERED: ACETAMINOPHEN TAB 650MG DOSE (2X325MG) PO PRN (09:45)
[2019-12-09 11:43] VITALS: BP 155/79
[2019-12-09] MEDS ORDERED: SUGAMMADEX SODIUM 500 MG/5 ML VIAL (BRIDION) As Ordered ONE (14:21)
--- NOTE | 2019-12-10 09:23 | RO ---
DATE OF OPERATION: 12/09/2019. PREOPERATIVE DIAGNOSIS: Left kidney stone. POSTOPERATIVE DIAGNOSIS: Left kidney stone. PROCEDURES: Cystoscopy, removal of left ureteral stent. SURGEON: Sharath Samano MD. ESTATE PLANNING DIRECTOR: None. ANESTHESIA: General. OPERATIVE INDICATIONS: This is a 44-year-old male who underwent a cystoscopy with left ureteroscopy, laser lithotripsy and basket extraction of stones about a month ago. He had a left ureteral stent placed in. Due to severe patient anxiety with stent removal in the office, he requested to have it done in the Operating Room under general anesthesia. DESCRIPTION OF PROCEDURE: Patient was brought to the operating room and general anesthesia was induced. Prophylactic antibiotics had already been taken by the patient earlier in the day. He was then placed in the dorsal lithotomy position, prepped and draped in the usual sterile fashion. A rigid cystoscope was inserted into the urethral meatus and advanced into the bladder. The previously placed left ureteral stent was seen. The stent was then grasped and withdrawn from the left collecting system intact. This marked conclusion of the procedure. The patient was then taken out of the dorsal lithotomy position, awakened from anesthesia, and transferred to the recovery room in stable condition. ESTIMATED BLOOD LOSS: 5 mL. COMPLICATIONS: None. SPECIMEN: None. PLAN: Given the patients history of kidney stones and history of renal cell carcinoma in the right kidney; status post right radical nephrectomy, we will have him follow up in the Urology Clinic in approximately three months with a CT abdomen without, followed by with I.V. contrast. This will allow us to follow him and assess any sign of kidney cancer recurrence and also follow for any new kidney stone formation. CORBY
== END 2019-12-09 11:50 | disposition home or self-care (01) ==
LOC: M SDC 07:55
PROVIDERS: ATTEND Urology
DX: N20.0 Calculus of kidney (principal); Z85.528 Personal history of other malignant neoplasm of kidney; Z90.5 Acquired absence of kidney; Z91.013 Allergy to seafood
CPT/HCPCS: 52310; J0131; J1100; J2250; J2405; J3010

== ENCOUNTER 2021-02-18 15:08 | Inpatient (IN) | payer SELFPAY ==
[~2021-02-18] VITALS: Ht 177.8 cm; Wt 109.1 kg
[~2021-02-18 15:08] MED LIST changes: -CIPROFLOXACIN 500MG TABLET PO ONE; -LR 1,000 ML IV ONE
[2021-02-18] MEDS ORDERED: MORPHINE 4 MG/ML 1ML VIAL/SYRINGE (J2270) IV ONE ×3 (15:25→17:30)
[2021-02-18] MEDS ORDERED: ONDANSETRON 4MG/2ML VIAL IV ONE (15:25)
[2021-02-18 15:48] LABS: BASO % 0.2 % (0.0-1.0); EOS # 0.1 10^3/uL (0.0-0.5); EOS % 0.9 % (0.0-3.0); HEMATOCRIT 40.6 % (42.0-52.0); HEMOGLOBIN 13.7 g/dl (13.5-17.5); LYMPH # 1.4 10^3/uL (1.5-5.0); LYMPH % 10.4 % (24.0-44.0); MEAN CORPUSCULAR HEMOGLOBIN 27.3 pg (27.0-33.0); MEAN CORPUSCULAR HGB CONC 33.7 g/dl (32.0-36.5); MEAN CORPUSCULAR VOLUME 80.9 fl (80.0-96.0); MONO # 1.2 10^3/uL (0.0-0.8); MONO % 8.5 % (2.0-8.0); NEUTROPHILS # 10.9 10^3/uL (1.5-8.5); NEUTROPHILS % 79.7 % (36.0-66.0); PLATELET COUNT, AUTOMATED 264 10^3/uL (150-450); RED BLOOD COUNT 5.02 10^6/uL (4.30-6.10); WHITE BLOOD COUNT 13.7 10^3/uL (4.0-10.0)
[2021-02-18 16:24] LABS: ALBUMIN 2.8 GM/DL (3.2-5.2); BILIRUBIN,DIRECT 0.1 MG/DL (0.0-0.2); BILIRUBIN,TOTAL 0.3 MG/DL (0.2-1.0); CALCIUM LEVEL 7.8 MG/DL (8.5-10.1); GLOMERULAR FILTRATION RATE 3.8 (>60); POTASSIUM SERUM 4.8 MEQ/L (3.5-5.1); TOTAL PROTEIN 5.8 GM/DL (6.4-8.2)
[2021-02-18] MEDS ORDERED: LIDOCAINE 2% 5ML JELLY UROJET TOP ONE ×2 (16:30→16:35)
[2021-02-18] MEDS ORDERED: NS 1,000 ML IV ONE ×2 (17:00→18:00)
[2021-02-18] MEDS ORDERED: HYDROMORPHONE HCL 0.5 MG/ 0.5 ML SYRINGE (J1170 PER 1) IV ONE (18:00)
[2021-02-18] MEDS ORDERED: HOME MED LIST COMPLETE! XX SCH (18:05)
[2021-02-18] MEDS ORDERED: HYDROMORPHONE HCL 0.5 MG/ 0.5 ML SYRINGE (J1170 PER 1) IV PRN ×3 (18:10→22:00)
[2021-02-18] MEDS ORDERED: ONDANSETRON 4MG/2ML VIAL IV PRN ×2 (18:10→21:00)
[2021-02-18] MEDS: NS 1,000 ML IV SCH (19:00)
[2021-02-18 19:09] LABS: RSV AMPLIFICATION NEGATIVE (NEGATIVE)
[2021-02-18] MEDS ORDERED: cefTRIAXone SOD 1GM VIAL (J0696 PER 250MG) As Ordered ONE (19:18)
[2021-02-18] MEDS ORDERED: CONRAY-60 60% 50ML VIAL (Q9961) As Ordered ONE (19:18)
[2021-02-18] MEDS ORDERED: MIDAZOLAM INJ 2MG/2ML VIAL (J2250 PER 1MG) As Ordered ONE (19:29)
[2021-02-18] MEDS ORDERED: fentaNYL 100 MCG/2 ML INJECTION As Ordered ONE (19:29)
[2021-02-18] MEDS ORDERED: LIDOCAINE 2% 100MG/5ML SDV (FOR ANES.) As Ordered ONE (19:30)
[2021-02-18] MEDS ORDERED: ONDANSETRON 4MG/2ML VIAL As Ordered ONE (19:30)
[2021-02-18] MEDS ORDERED: propofoL 200 MG/20 ML VIAL As Ordered ONE ×2 (19:30→19:58)
[2021-02-18] MEDS ORDERED: dexameTHASONE 4 MG/ML 1ML VIAL (J1100 PER 1MG) As Ordered ONE (19:30)
[2021-02-18] MEDS ORDERED: cefTRIAXone SOD 1 GM in D5W MINI-BAG PLUS 50 ML IV SCH (20:00)
[2021-02-18] MEDS ORDERED: ACETAMINOPHEN 1000MG 100ML IV BTL (OFIRMEV) (J0131 PER 10MG) As Ordered ONE (20:03)
[2021-02-18] MEDS ORDERED: PHENYLephrine 500MCG 5ML (100MCG/ML) SYRINGE As Ordered ONE (20:13)
[2021-02-18] MEDS ORDERED: oxyCODONE 5MG TAB PO PRN (21:00)
[2021-02-18] MEDS ORDERED: fentaNYL 100 MCG/2 ML INJECTION IV PRN (21:00)
[2021-02-18] MEDS ORDERED: LR 1,000 ML IV SCH (21:00)
[2021-02-18 22:00] VITALS: BP 148/100
[2021-02-18 22:30] VITALS: BP 162/93
[2021-02-18 23:00] VITALS: BP 158/93
[2021-02-18] MEDS: HYDROMORPHONE HCL 0.5 MG/ 0.5 ML SYRINGE (J1170 PER 1) IV PRN (23:07)
[2021-02-19] VITALS: BP 150/91
[2021-02-19] MEDS ORDERED: RAMELTEON 8 MG TAB (ROZEREM) PO PRN (00:20)
[2021-02-19 01:00] VITALS: BP 151/91
[2021-02-19 02:00] VITALS: BP 129/71
[2021-02-19 03:00] VITALS: BP 152/89
[2021-02-19] MEDS: HYDROMORPHONE HCL 0.5 MG/ 0.5 ML SYRINGE (J1170 PER 1) IV PRN (03:54)
[2021-02-19 06:00] VITALS: BP 125/84
[2021-02-19] MEDS: NS 1,000 ML IV SCH (06:05)
[2021-02-19] MEDS ORDERED: NS 1,000 ML IV ONE (06:45)
[2021-02-19 07:20] LABS: CALCIUM LEVEL 7.7 MG/DL (8.5-10.1); CREATININE FOR GFR 5.98 MG/DL (0.70-1.30); GLOMERULAR FILTRATION RATE 10.9 (>60); PHOSPHORUS LEVEL 3.6 MG/DL (2.5-4.9); POTASSIUM SERUM 4.8 MEQ/L (3.5-5.1)
[2021-02-19] MEDS ORDERED: NS 0.45% 1,000 ML IV SCH (07:30)
[2021-02-19] MEDS ORDERED: PERCOCET 5MG/325MG TAB PO PRN (08:10)
[2021-02-19] MEDS ORDERED: ROXI1TAB2 PO (10:27)
[2021-02-19] MEDS ORDERED: CEFD300C41 PO (10:27)
[2021-02-23 16:08] LABS: CA Hydro Phos 60 % (.); CA Oxalate Dihy 40 % (.); Size 5x4 mm (.)
[2021-03-16] MEDS ORDERED: OXYB5TAB10 PO (14:05)
== END 2021-02-19 11:07 | disposition left against medical advice (07) | DRG 446 ==
LOC: M ED 15:08 → EDBD 15:08 → M ED INP 18:06 → M MSPAV 22:00
PROVIDERS: ADMIT Internal Medicine Nephrology; ATTEND Internal Medicine Nephrology
PROC: 0TC78ZZ Extirpation of Matter from Left Ureter, Via Natural or Artificial Opening Endoscopic (ICD-10-PCS; principal; 2021-02-19)
PROC: 0T778DZ Dilation of Left Ureter with Intraluminal Device, Via Natural or Artificial Opening Endoscopic (ICD-10-PCS; 2021-02-19)
DX: N13.2 Hydronephrosis with renal and ureteral calculous obstruction (principal); N17.9 Acute kidney failure, unspecified; Z90.5 Acquired absence of kidney; Z85.528 Personal history of other malignant neoplasm of kidney; I10 Essential (primary) hypertension; M25.572 Pain in left ankle and joints of left foot; Z20.822 Contact with and (suspected) exposure to COVID-19

== ENCOUNTER → 2021-03-13 | Outpatient (CLI) | payer OTHER, SELFPAY ==
[~2021-03-13] MED LIST changes: +CEFD300C41 PO; +ROXI1TAB2 PO
[2021-03-13 14:19] LABS: HEMATOCRIT 39.7 % (42.0-52.0); HEMOGLOBIN 12.5 g/dl (13.5-17.5); MEAN CORPUSCULAR HEMOGLOBIN 27.1 pg (27.0-33.0); MEAN CORPUSCULAR HGB CONC 31.5 g/dl (32.0-36.5); MEAN CORPUSCULAR VOLUME 86.1 fl (80.0-96.0); PLATELET COUNT, AUTOMATED 501 10^3/uL (150-450); RED BLOOD COUNT 4.61 10^6/uL (4.30-6.10); WHITE BLOOD COUNT 10.9 10^3/uL (4.0-10.0)
[2021-03-13 14:25] LABS: APPEARANCE, URINE CLOUDY (CLEAR); BACTERIA, URINE AUTO 1+ (NEGATIVE); BILIRUBIN, URINE AUTO NEGATIVE (NEGATIVE); BLOOD, URINE BLOOD NEGATIVE (NEGATIVE); COLOR, URINE YELLOW (YELLOW); GLUCOSE, URINE (UA) AUTO NEGATIVE (NEGATIVE); KETONE, URINE AUTO NEGATIVE (NEGATIVE); LEUKOCYTE ESTERASE, URINE AUTO 3+ (NEGATIVE); MUCUS, URINE SMALL (NEGATIVE); NITRITE, URINE AUTO NEGATIVE (NEGATIVE); PROTEIN, URINE AUTO 2+ mg/dL (NEGATIVE); RBC, URINE AUTO 30 /HPF (0-3); SPECIFIC GRAVITY URINE AUTO 1.013 (1.002-1.035); SQUAMOUS EPITHELIAL CELL UR AU 9 /HPF (0-6); UROBILINOGEN, URINE AUTO 0.2 mg/dL (0.0-2.0); WBC, URINE AUTO TNTC /HPF (0-3)
[2021-03-13 14:32] LABS: INR 1.08; PARTIAL THROMBOPLASTIN TIME 33.3 SECONDS (25.9-37.0); PROTHROMBIN TIME 14.4 SECONDS (12.7-14.5)
[2021-03-13 14:46] LABS: BLOOD UREA NITROGEN 14 MG/DL (7-18); CALCIUM LEVEL 9.3 MG/DL (8.5-10.1); CARBON DIOXIDE LEVEL 28 MEQ/L (21-32); CHLORIDE LEVEL 106 MEQ/L (98-107); GLOMERULAR FILTRATION RATE > 60.0 (>60); GLUCOSE, FASTING 87 MG/DL (70-100); POTASSIUM SERUM 4.2 MEQ/L (3.5-5.1); SODIUM LEVEL 141 MEQ/L (136-145)
== END ==
LOC: M LAB 13:27
PROVIDERS: ATTEND Nurse Practitioner Women's Health
DX: Z01.818 Encounter for other preprocedural examination (principal); N13.2 Hydronephrosis with renal and ureteral calculous obstruction

== ENCOUNTER → 2021-03-13 | Outpatient (CLI) | payer SELFPAY, OTHER | LOC: M LABSMTC 12:47 | PROVIDERS: ATTEND Anesthesiology | DX: Z01.812 Encounter for preprocedural laboratory examination (principal); Z20.822 Contact with and (suspected) exposure to COVID-19 ==

== ENCOUNTER 2021-03-17 09:30 | Day surgery (SDC) | payer OTHER, SELFPAY ==
[~2021-03-17] VITALS: Ht 177.8 cm; Wt 99.8 kg
[~2021-03-17 09:30] MED LIST changes: +LR 1,000 ML IV ONE; +ceFAZolin SOD 2 GM in IV 1 EA IV ONE
[2021-03-17] MEDS ORDERED: CONRAY-60 60% 50ML VIAL (Q9961) As Ordered ONE (10:15)
[2021-03-17] MEDS ORDERED: LIDOCAINE 2% 100MG/5ML SDV (FOR ANES.) As Ordered ONE (10:40)
[2021-03-17] MEDS ORDERED: MIDAZOLAM INJ 2MG/2ML VIAL (J2250 PER 1MG) As Ordered ONE (10:40)
[2021-03-17] MEDS ORDERED: ONDANSETRON 4MG/2ML VIAL As Ordered ONE (10:40)
[2021-03-17] MEDS ORDERED: dexameTHASONE 4 MG/ML 1ML VIAL (J1100 PER 1MG) As Ordered ONE (10:40)
[2021-03-17] MEDS ORDERED: ROCURONIUM BROMIDE 50 MG/5 ML VIAL As Ordered ONE (10:40)
[2021-03-17] MEDS ORDERED: fentaNYL 100 MCG/2 ML INJECTION (J3010) As Ordered ONE ×2 (10:40→10:44)
[2021-03-17] MEDS ORDERED: propofoL 200 MG/20 ML VIAL As Ordered ONE (10:40)
[2021-03-17] MEDS ORDERED: ACETAMINOPHEN 1000MG 100ML IV BTL (OFIRMEV) (J0131 PER 10MG) As Ordered ONE (10:42)
[2021-03-17] MEDS ORDERED: SUGAMMADEX SODIUM 500 MG/5 ML VIAL (BRIDION) As Ordered ONE (10:50)
[2021-03-17] MEDS ORDERED: LR 1,000 ML IV SCH (12:35)
[2021-03-17] MEDS ORDERED: fentaNYL 100 MCG/2 ML INJECTION (J3010) IV PRN (12:35)
[2021-03-17] MEDS ORDERED: ONDANSETRON 4MG/2ML VIAL IV PRN (12:35)
[2021-03-17] MEDS ORDERED: METOCLOPRAMIDE INJ 10MG/2ML VIAL (J2765 PER 1) IV PRN (12:35)
[2021-03-17] MEDS ORDERED: PERCOCET 5MG/325MG TAB PO PRN ×2 (12:35)
[2021-03-17 12:55] VITALS: BP 115/69
[2021-03-17] MEDS ORDERED: OXYB5TAB10 PO (13:23)
[2021-03-17] MEDS ORDERED: PERCOCET PO (13:23)
[2021-03-23 14:13] LABS: CA Hydro Phos 40 % (.); CA Oxalate Dihy 50 % (.); Ca Ox Monohydrate 10 % (.); Size 7x4 mm (.)
== END 2021-03-17 13:25 | disposition home or self-care (01) ==
LOC: M SDC 09:30
PROVIDERS: ATTEND Urology
DX: N20.2 Calculus of kidney with calculus of ureter (principal); Z85.528 Personal history of other malignant neoplasm of kidney; Z90.5 Acquired absence of kidney; I10 Essential (primary) hypertension; Z87.442 Personal history of urinary calculi; Z79.899 Other long term (current) drug therapy; Z79.1 Long term (current) use of non-steroidal anti-inflammatories (NSAID); Z79.2 Long term (current) use of antibiotics; Z91.013 Allergy to seafood
CPT/HCPCS: 52356; 74420; 82365; 88300; C1769; C2617; J0131; J0690; J1100; J2250; J2405; J3010; Q9961